=== PATIENT | male | born 1975 | race Hispanic/Latino ===

== ENCOUNTER 2017-01-16 21:44 | Emergency (ER) | payer SELFPAY | END 2017-01-16 22:04 | disposition left against medical advice (07) | LOC: ERS 21:44 | DX: Z53.21 Procedure and treatment not carried out due to patient leaving prior to being seen by health care provider (principal) ==

== ENCOUNTER 2017-01-17 05:25 | Emergency (ER) | payer SELFPAY ==
[2017-01-17 06:13] LABS: #Eosinphils 0.1 thou/uL (0.0-0.7); #Lymphocytes 2.6 thou/uL (1.20-3.40); #Neutrophils 6.6 thou/uL (1.40-6.50); %Basophils 0.5 % (0.0-1.0); %Lymphocytes 24.8 % (21.0-51.0); Hematocrit 40.3 % (42.0-52.0); Mean Platelet Volume 7.1 fL (7.4-10.4); Red Blood Cell (RBC) Count 4.12 mill/uL (4.70-6.10); White Blood Cell (WBC) Count 10.3 thou/uL (4.8-10.8)
[2017-01-17 06:24] LABS: Lactic Acid - Sepsis 1.2 mmol/L (0.5-2.2)
[2017-01-17 06:27] LABS: PTT 27.5 SEC (22.9-36.1); Prothrombin Time 13.4 SEC (12.0-14.7)
[2017-01-17 06:28] LABS: ALT (SGPT) 21 U/L (8-55); AST (SGOT) 24 U/L (5-34); Alkaline Phosphatase 74 U/L (40-150); Anion Gap 16 mmol/L (10-20); BUN (Urea Nitrogen) 22 mg/dL (8.9-20.6); Bilirubin, Total 0.3 mg/dL (0.2-1.2); CK (CPK) 374 U/L (30-200); Calc. Creatinine Clearance 0 mL/min (70-130); Calcium 9.2 mg/dL (7.8-10.44); Carbon Dioxide 23 mmol/L (22-29); Chloride 105 mmol/L (98-107); Estimated GFR-MDRD 73; Globulin 2.9 g/dL (2.4-3.5); Protein, Total 7.1 g/dL (6.0-8.3)
[2017-01-17 06:40] LABS: Bilirubin Negative (Negative); Blood, Urine Negative (Negative); Glucose, Urine (Dipstick) Negative (Negative); Ketone, Urine 15 mg/dL (Negative); Nitrite Negative (Negative); Protein, Urine (Dipstick) Negative (Neg-Trace)
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
[2017-01-17] MEDS ORDERED: ISOVUE-370 76%-LOCM 1 ML ONE (13:48)
== END 2017-01-17 07:59 | disposition home or self-care (01) ==
LOC: ERS 05:25
DX: S01.01XA Laceration without foreign body of scalp, initial encounter (principal); S30.1XXA Contusion of abdominal wall, initial encounter; R31.9 Hematuria, unspecified; F17.210 Nicotine dependence, cigarettes, uncomplicated; V19.9XXA Pedal cyclist (driver) (passenger) injured in unspecified traffic accident, initial encounter
CPT/HCPCS: 12001; 29125; 36415; 70450; 72125; 74177; 80053; 81003; 82550; 83605; 85025; 85610; 85730; 96360; 99406

== ENCOUNTER 2017-01-26 15:52 | Emergency (ER) | payer SELFPAY | END 2017-01-26 16:24 | disposition home or self-care (01) | LOC: ERS 15:52 | DX: S01.01XD Laceration without foreign body of scalp, subsequent encounter (principal); F17.210 Nicotine dependence, cigarettes, uncomplicated; V19.9XXD Pedal cyclist (driver) (passenger) injured in unspecified traffic accident, subsequent encounter ==

== ENCOUNTER 2017-02-07 03:16 | Emergency (ER) | payer SELFPAY | END 2017-02-07 03:41 | disposition home or self-care (01) | LOC: ERS 03:16 | DX: S30.860A Insect bite (nonvenomous) of lower back and pelvis, initial encounter (principal); F32.9 Major depressive disorder, single episode, unspecified; F17.210 Nicotine dependence, cigarettes, uncomplicated; F17.220 Nicotine dependence, chewing tobacco, uncomplicated; W57.XXXA Bitten or stung by nonvenomous insect and other nonvenomous arthropods, initial encounter | CPT/HCPCS: 99406 ==

== ENCOUNTER 2017-02-08 23:04 | Emergency (ER) | payer SELFPAY | END 2017-02-08 23:53 | disposition home or self-care (01) | LOC: ERS 23:04 | DX: L03.312 Cellulitis of back [any part except buttock and flank] (principal); F32.9 Major depressive disorder, single episode, unspecified; F17.220 Nicotine dependence, chewing tobacco, uncomplicated; F17.210 Nicotine dependence, cigarettes, uncomplicated | CPT/HCPCS: 99283 ==

== ENCOUNTER 2017-02-23 08:35 | Emergency (ER) | payer SELFPAY ==
[2017-02-23] MEDS ORDERED: Ketorolac Tromethamine 60 MG/2 ML VIAL ONE (09:12)
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
== END 2017-02-23 10:00 | disposition home or self-care (01) ==
LOC: ERS 08:35
DX: M79.641 Pain in right hand (principal); F32.9 Major depressive disorder, single episode, unspecified; F17.220 Nicotine dependence, chewing tobacco, uncomplicated; F17.210 Nicotine dependence, cigarettes, uncomplicated
CPT/HCPCS: 96372; 99406; J1885

== ENCOUNTER 2017-03-08 10:54 | Emergency (ER) | payer SELFPAY ==
--- NOTE | 2017-03-08 14:38 | RAD ---
CHEST 1 VIEW: Date: 03/08/17 HISTORY: Cough. COMPARISON: None. FINDINGS: Normal cardiac silhouette. Pulmonary vessels and hilum are normal. No masses. No consolidation. No pn eumothorax or osseous abnormalities. IMPRESSION: No acute cardiopulmonary process. POS: [facility]
== END 2017-03-08 14:32 | disposition home or self-care (01) ==
LOC: SJX 10:54 → ERS 10:54
DX: J20.9 Acute bronchitis, unspecified (principal); F32.9 Major depressive disorder, single episode, unspecified; F17.220 Nicotine dependence, chewing tobacco, uncomplicated
CPT/HCPCS: 71010; J7620